=== PATIENT | male | born 1970 | race Caucasian/White ===

== ENCOUNTER 2018-06-08 03:17 | Emergency (ER) | payer SELFPAY ==
[~2018-06-08] VITALS: Ht 185.4 cm; Wt 108.9 kg
[2018-06-08 03:32] VITALS: BP 160/98
[2018-06-08] MEDS ORDERED: CEPH-264 PO (03:32)
[2018-06-08] MEDS ORDERED: HYDROcodone/APAP 10/325 1 TAB TABLET PO ONE (04:00)
--- NOTE | 2018-06-08 05:23 | PHYS DOC ---
Past Medical History Past Medical History: Hypertension Past Surgical History: Tonsillectomy Additional Past Surgical Histo: RT KNEE, NECK AND BACK SURG Alcohol Use: None Drug Use: None Adult General Chief Complaint Chief Complaint: ABSCESS HPI HPI Patient is a 47 year old [place] male who presents with a painful soft tissue mass in his left buttocks. Patient noticed several days ago. On exam, the patient is a 2 x 2 centimeter soft compressible, nonfluctuant non-erythematous subcutaneous soft tissue over lower buttocks. No induration or pointing or drainage. Minimal tenderness on exam. [] Review of Systems Review of Systems Review symptoms as per history of present illness. All other systems were reviewed and found to be within normal limits, except as documented in this note. Current Medications Current Medications Current Medications Medications (Trade) Dose Ordered Sig/Vicki Start Time Stop Time Status Last Admin Dose Admin Acetaminophen/ Hydrocodone Bitart (Lortab 10/325) 1 tab 1X ONCE 06/08/18 04:00 06/08/18 04:00 DC 06/08/18 03:41 1 TAB Allergies Allergies Allergies Coded Allergies Type Severity Reaction Last Updated Verified ketorolac Allergy Intermediate 06/08/18 Yes tramadol Allergy Intermediate 06/08/18 Yes Physical Exam Physical Exam Constitutional: Well developed, well nourished, no acute distress, non-toxic appearance. [] HENT: Normocephalic, atraumatic, bilateral external ears normal, oropharynx moist, no oral exudates, nose normal. [] Eyes: PERRLA, EOMI, conjunctiva normal, no discharge. [] Buttokcs: Painful soft tissue mass in his left buttocks. Patient noticed several days ago. On exam, the patient is a 2 x 2 centimeter soft compressible, nonfluctuant non-erythematous subcutaneous soft tissue over lower buttocks. No induration or pointing or drainage. Minimal tenderness [] Back: No tenderness, no CVA tenderness. [] Extremities: No tenderness edema. [] Neurologic: Alert and oriented X 3, normal motor function, normal sensory function, no focal deficits noted. [] Psychologic: Affect normal, judgement normal, mood normal. [] Current Patient Data Vital Signs Vital Signs Date Time Temp Pulse Resp B/P (MAP) Pulse Ox O2 Delivery O2 Flow Rate FiO2 06/08/18 03:32 98.3 94 18 160/98 (118) 96 Room Air 98.3 EKG EKG [] Radiology/Procedures Radiology/Procedures [] Course & Med Decision Making Course & Med Decision Making Pertinent Labs and Imaging studies reviewed. (See chart for details) [Patient provided pain medication. Aspiration I&D offered to identify possible abscess. Patient declined. Prefers to follow-up with PCP.] Dragon Disclaimer Dragon Disclaimer This electronic medical record was generated, in whole or in part, using a voice recognition dictation system. Departure Departure Impression: Primary Impression: Mass of soft tissue Disposition: HOME, SELF-CARE Condition: GOOD Additional Instructions: Please take ibuprofen or Tylenol for pain and antibiotics as prescribed. Follow- up with a local primary care physician for evaluation of soft tissue mass. Return to the ED if new or worsening symptoms. Scripts Cephalexin (KEFLEX) 500 Mg Capsule 1 CAP PO TID, #21 CAP Prov: YADIEL JIM DO 06/08/18 YADIEL JIM DO Jun 08, 2018 05:23
== END 2018-06-08 03:47 | disposition home or self-care (01) ==
LOC: ER 03:17
DX: R22.2 Localized swelling, mass and lump, trunk (principal); M54.5 Low back pain; I10 Essential (primary) hypertension; Z98.890 Other specified postprocedural states; Z88.6 Allergy status to analgesic agent; Z88.8 Allergy status to other drugs, medicaments and biological substances
CPT/HCPCS: 99283